=== PATIENT | male | born 1995 | race Caucasian/White ===

== ENCOUNTER 2017-12-08 17:05 | Emergency (ER) | payer OTHER ==
[~2017-12-08] VITALS: Ht 185.4 cm; Wt 98.6 kg
[2017-12-08 17:20] VITALS: BP 160/107
[2017-12-08] MEDS ORDERED: IBUPROFEN 200 MG TABLET ONE (18:53)
[2017-12-08] MEDS ORDERED: IBUPROFEN 200 MG TABLET PO ONE (19:00)
== END 2017-12-08 19:00 | disposition home or self-care (01) ==
LOC: ED 18:22
DX: S93.401A Sprain of unspecified ligament of right ankle, initial encounter (principal); W50.2XXA Accidental twist by another person, initial encounter; Y93.01 Activity, walking, marching and hiking; Y92.89 Other specified places as the place of occurrence of the external cause; Y99.8 Other external cause status
CPT/HCPCS: 99284